=== PATIENT | female | born 1955 ===

== ENCOUNTER → 2025-05-09 13:01 | Outpatient (BNVA) | payer MEDICARE, OTHER, SELFPAY | PROVIDERS: PCP Nurse Practitioner; Referring Provider Nurse Practitioner; Visit Provider Student in an Organized Health Care Education/Training Program | DX: M17.12 Unilateral primary osteoarthritis, left knee (principal); M16.12 Unilateral primary osteoarthritis, left hip; M47.20 Other spondylosis with radiculopathy, site unspecified; E11.9 Type 2 diabetes mellitus without complications; E66.9 Obesity, unspecified; Z68.42 Body mass index [BMI] 45.0-49.9, adult | CPT/HCPCS: 99204; 36415; 82985 ==

== ENCOUNTER 2025-05-09 13:53 | Outpatient (CLI) | payer MEDICARE, OTHER, SELFPAY | END 2025-05-09 13:54 | disposition home or self-care (01) | LOC: LBO 13:55 | PROVIDERS: PCP Nurse Practitioner; Visit Provider Student in an Organized Health Care Education/Training Program | DX: E11.9 Type 2 diabetes mellitus without complications (principal); Z01.818 Encounter for other preprocedural examination | CPT/HCPCS: 36415; 82985 ==